=== PATIENT | female | born 1990 | race Caucasian/White ===

== ENCOUNTER 2022-05-20 13:53 | Emergency (ER) | payer BC, SELFPAY ==
[2022-05-20 13:55] VITALS: PULSE 93; RESP 16; TEMP 37; O2SAT 98; BMI 31.4
[2022-05-20 14:03] VITALS: BP 147/82
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
[2022-05-20 15:23] VITALS: BP 155/78; PULSE 82; RESP 16; O2SAT 99
[2022-05-20 15:57] VITALS: BP 146/81; PULSE 71
== END 2022-05-20 15:59 | disposition home or self-care (01) ==
PROVIDERS: Emergency Provider Emergency Medicine; PCP Pediatrics; Visit Provider Emergency Medicine
DX: O9A.212 Injury, poisoning and certain other consequences of external causes complicating pregnancy, second trimester (principal); S39.011A Strain of muscle, fascia and tendon of abdomen, initial encounter; V43.62XA Car passenger injured in collision with other type car in traffic accident, initial encounter; Y93.89 Activity, other specified; Z3A.18 18 weeks gestation of pregnancy
CPT/HCPCS: 76815; 99284